=== PATIENT | male | born 1940 | race Caucasian/White ===

== ENCOUNTER 2022-09-23 20:28 | Inpatient (IN) | payer MEDICARE ==
[~2022-09-23] VITALS: Ht 177.8 cm; Wt 95.0 kg
[~2022-09-23 20:28] MED LIST: ALFU10TA10 PO; ATOR10TA87 PO; CARV-50 PO; CHOL100010 PO; DIGO250T2 PO; FINA5TAB11 PO; FLUO20CA39 PO; FURO40TA4 PO; GLIM4TAB7 PO; ICOS1CAP PO; LISI-222 PO; METF-438 PO; NORCO10T PO; WARF-113 PO
[2022-09-23] MEDS ORDERED: temazepam 15mg capsule PO PRN (21:00)
[2022-09-23] MEDS ORDERED: normal saline 1000ML IV soln IVB ONE (21:10)
[2022-09-23 22:05] LABS: HEMOGLOBIN 11.4 g/dl (14.0-17.9); MEAN PLATELET VOLUME 10.5 FL (7.4-10.4); MONOCYTES # (AUTO) 0.5 X10'3 (0-0.9); MONOCYTES % (AUTO) 4.5 % (2-12)
[2022-09-23 22:06] LABS: BASOPHILS % (AUTO) 0.1 % (0-1); EOSINOPHILS % (AUTO) 0.1 % (0-6); HEMATOCRIT 35.3 % (42.0-52.0); LYMPHOCYTES # (AUTO) 0.5 X10'3 (1.1-4.8); LYMPHOCYTES % (AUTO) 4.6 % (21-51); MEAN CORPUSCULAR HEMOGLOBIN 32.4 PG (27.0-31.0); MEAN CORPUSCULAR HGB CONC 32.4 g/dL (33.0-36.5); MEAN CORPUSCULAR VOLUME 99.8 FL (78-98); NEUTROPHILS # (AUTO) 10.8 X10'3 (1.8-7.7); NEUTROPHILS % (AUTO) 90.7 % (42-75); RED BLOOD COUNT 3.53 X10'6 (4.70-6.10); RED CELL DISTRIBUTION WIDTH 17.6 % (11.5-14.5); WHITE BLOOD COUNT 11.9 X10'3 (4.5-11.0)
[2022-09-23 22:32] LABS: ALBUMIN 3.1 G/DL (3.4-5.0); ALKALINE PHOSPHATASE 148 IU/L (46-116); ANION GAP 23 (8-16); BILIRUBIN,TOTAL 5.2 MG/DL (0.1-1.0); CALCIUM 6.2 MG/DL (8.5-10.1); CHLORIDE 94 MMOL/L (99-107); GLUCOSE 224 MG/DL (70-104); POTASSIUM 4.9 MMOL/L (3.5-5.1); SODIUM 133 MMOL/L (135-145); TOTAL CARBON DIOXIDE 16.5 MMOL/L (24-32); eGFR 9 ML/MIN
[2022-09-23] MEDS ORDERED: furosemide 10 MG/1 ML 10ml inj IV ONE (23:00)
[2022-09-23] MEDS ORDERED: normal saline 1000ml 1,000 ML IV SCH (23:05)
[2022-09-23] MEDS ORDERED: ondansetron/PF 4mg/2ml inj IV PRN (23:05)
[2022-09-23] MEDS ORDERED: acetaminophen 325mg tablet PO PRN ×2 (23:05)
[2022-09-23 23:07] LABS: ALBUMIN/GLOBULIN RATIO 1.1 (1.1-1.5); BLOOD UREA NITROGEN 143 MG/DL (7-18); BUN/CREATININE RATIO 23.1 (5.4-32.0); TOTAL PROTEIN 5.9 G/DL (6.4-8.2)
[2022-09-23 23:09] LABS: ALANINE AMINOTRANSFERASE 4625 U/L (12-78); ASPARTATE AMINO TRANSFERASE > 7000 U/L (10-37); PLATELET COUNT 46 X10'3 (140-440)
[2022-09-23] MEDS ORDERED: insulin Lispro (HumaLOG) vial - multi-dose SQ SCH (23:10)
[2022-09-23] MEDS ORDERED: glucagon, human recombinant 1mg kit SUBCUT PRN (23:10)
[2022-09-23] MEDS ORDERED: MESSAGE TO PHARMACY PO ONE (23:10)
[2022-09-23] MEDS ORDERED: DEXTROSE 15 GM of carb/4 tabs (each vial/BOTTLE has 4 tablets) PO PRN ×2 (23:10)
[2022-09-23] MEDS ORDERED: dextrose 50%-water 50ml dispensing syringe IV PRN ×2 (23:10)
--- NOTE | 2022-09-23 23:14 | NUR ---
PAGER ID: [phone] MESSAGE: Notification of Critical value; Preston Cantu in ED room 1 has a platelet count of 47,000. Krista CHAVEZ [id number]
[2022-09-23 23:42] LABS: ANISOCYTOSIS 1+; NUCLEATED RED BLOOD CELLS 4 /100WBC (0-0); PLATELET ESTIMATE DECREASED; TOTAL CELLS COUNTED 100
[2022-09-23 23:44] LABS: LARGE PLATELETS FEW
[2022-09-23 23:45] LABS: APTT 71 SECONDS (22-32)
[2022-09-23] MEDS ORDERED: CefTRIAXone 2gm/D5W 50ml BAG 50 ML IV SCH (23:50)
[2022-09-23] MEDS ORDERED: NORepinephrine inj. 32 MG in normal saline 250ml IV soln 218 ML IV SCH (23:50)
[2022-09-24 03:13] LABS: CLARITY,URINE CLOUDY (Clear); COLOR,URINE AMBER (Yellow); GLUCOSE, URINE NEGATIVE (Neg); KETONES,URINE 15 mg/dl (Neg); LEUKOCYTE ESTERASE ,URINE TRACE (Neg); NITRITES, URINE NEGATIVE (Neg); OCCULT BLOOD,URINE LARGE (Neg); PROTEIN,URINE 100 mg/dl (Neg)
[2022-09-24 03:38] LABS: BACTERIA,URINE 3+ /HPF (Neg); WBC,URINE 30-50 /HPF (0-4)
[2022-09-24 03:40] LABS: AMORPHOUS URATES 2+; MUCUS STRANDS NONE SEEN /LPF (Neg); SQUAMOUS EPITHELIAL CELL,UR FEW /LPF (FEW); TRANSITIONAL EPI CELLS,URINE FEW /HPF
[2022-09-24 03:41] LABS: UA COLLECTION TYPE NON-SPECIFIED
[2022-09-24] MEDS ORDERED: NORepinephrine 8mg/ 250ml NS 250 ML IV ONE (03:41)
[2022-09-24 04:16] LABS: ALBUMIN 2.7 G/DL (3.4-5.0); ALKALINE PHOSPHATASE 138 IU/L (46-116); ANION GAP 22 (8-16); BILIRUBIN,TOTAL 4.9 MG/DL (0.1-1.0); CHLORIDE 93 MMOL/L (99-107); CREATININE 6.22 MG/DL (0.60-1.10); GLUCOSE 222 MG/DL (70-104); POTASSIUM 5.2 MMOL/L (3.5-5.1); SODIUM 130 MMOL/L (135-145); TOTAL CARBON DIOXIDE 15.4 MMOL/L (24-32); eGFR 9 ML/MIN
[2022-09-24 04:35] LABS: TOTAL PROTEIN 5.3 G/DL (6.4-8.2)
[2022-09-24 04:36] LABS: BUN/CREATININE RATIO 25.7 (5.4-32.0)
[2022-09-24 04:39] LABS: BLOOD UREA NITROGEN 160 MG/DL (7-18)
[2022-09-24 04:42] LABS: ALANINE AMINOTRANSFERASE 4118 U/L (12-78); ASPARTATE AMINO TRANSFERASE 5586 U/L (10-37); CALCIUM 5.6 MG/DL (8.5-10.1)
[2022-09-24 04:46] LABS: BASOPHILS % (AUTO) 0.2 % (0-1); EOSINOPHILS % (AUTO) 0 % (0-6); HEMOGLOBIN 10.2 g/dl (14.0-17.9); MONOCYTES # (AUTO) 0.7 X10'3 (0-0.9)
[2022-09-24 04:48] LABS: HEMATOCRIT 32.7 % (42.0-52.0); LYMPHOCYTES # (AUTO) 0.5 X10'3 (1.1-4.8); LYMPHOCYTES % (AUTO) 4.3 % (21-51); MEAN CORPUSCULAR HEMOGLOBIN 31.4 PG (27.0-31.0); MEAN CORPUSCULAR HGB CONC 31.2 g/dL (33.0-36.5); MEAN CORPUSCULAR VOLUME 100.6 FL (78-98); MEAN PLATELET VOLUME 11.2 FL (7.4-10.4); MONOCYTES % (AUTO) 6.1 % (2-12); NEUTROPHILS # (AUTO) 10.5 X10'3 (1.8-7.7); NEUTROPHILS % (AUTO) 89.4 % (42-75); PLATELET COUNT 53 X10'3 (140-440); RED BLOOD COUNT 3.25 X10'6 (4.70-6.10); RED CELL DISTRIBUTION WIDTH 17.6 % (11.5-14.5); WHITE BLOOD COUNT 11.8 X10'3 (4.5-11.0)
[2022-09-24] MEDS ORDERED: human prothrombin complex-PCC 500 UNIT/20 ML VIAL IV ONE (05:15)
--- NOTE | 2022-09-24 05:23 | NUR ---
verbal order from car lot attendant to use 8 mg in 250 ml NS Norepinephrine in peripheral line until central line is available and MD ordered concentration of 32 mg in 250 ml NS can be used.
--- NOTE | 2022-09-24 05:33 | NUR ---
CRISTOFER KOEHLER spoke to family about placing a central line. The family declines to have a central line placed at this time.
[2022-09-24] MEDS ORDERED: phytonadione inj. 5 MG in normal saline 100ml IV soln 100 ML IV ONE (06:00)
[2022-09-24] MEDS: morphine 2 MG/ML inj. syringe IV PRN ×2 (06:05→07:15)
[2022-09-24] MEDS ORDERED: STERILE PO ONE ×2 (06:25)
[2022-09-24] MEDS ORDERED: WATER FOR INJECTION PO ONE ×2 (06:25)
[2022-09-24] MEDS ORDERED: PHYTONADIONE PO ONE ×2 (06:25)
[2022-09-24 06:35] VITALS: BP 89/54
--- NOTE | 2022-09-24 06:50 | NUR ---
pharmacy called to change Vit K to IV due to pt not being able to tolerate PO medication at this time.
[2022-09-24] MEDS ORDERED: LORazepam 2 mg/ml vial IV ONE (07:35)
--- NOTE | 2022-09-24 07:47 | NUR ---
Left AC IV bleeding and removed. Pressure bandage applied to left ac. pt cleaned. blow by oxygen applied for comfort. warm blankets applied. family aware of current plan of care and awaiting hospitalist. pt medicated per orders. will continue to monitor.
--- NOTE | 2022-09-24 07:52 | NUR ---
PAGER ID: [phone] MESSAGE: Mr Cantu Andrea in ER bed 16. family would like pt to be comfort care, can we change code status and start comfort measures. Connie
[2022-09-24] MEDS ORDERED: morphine 10mg/0.5ml (conc. morphine) oral syringe PO PRN (07:55)
[2022-09-24] MEDS ORDERED: LORazepam 2 mg/ml vial IV PRN (07:55)
[2022-09-24] MEDS ORDERED: heparin, porcine 5000 units/ml vial SQ SCH (08:00)
[2022-09-24] MEDS: morphine 10mg/ml inj. IV PRN ×4 (08:17→12:25)
--- NOTE | 2022-09-24 12:42 | NUR ---
Called into pts room. Pt not breathing. asystole on monitor. no central pulse noted. TOD 1242. Charge aware. [facility] called and pt released. awaiting [facility] for mortuary arrangements.
[2022-09-24] MEDS ORDERED: insulin glargine (Lantus) pen - multi-dose SQ SCH (21:00)
--- NOTE | 2022-10-04 13:22 | NUR ---
Case Management DC follow up: Patient .
== END 2022-09-24 16:28 | DRG 441 ==
LOC: ER 20:29 → ED HOLD 23:06 → EDBEDREQ 09-24 05:42
PROVIDERS: ADMIT Internal Medicine; ATTEND Family Medicine
DX: K72.00 Acute and subacute hepatic failure without coma (principal); I50.23 Acute on chronic systolic (congestive) heart failure; J18.9 Pneumonia, unspecified organism; N18.6 End stage renal disease; J96.21 Acute and chronic respiratory failure with hypoxia; K76.7 Hepatorenal syndrome; I13.2 Hypertensive heart and chronic kidney disease with heart failure and with stage 5 chronic kidney disease, or end stage renal disease; D62 Acute posthemorrhagic anemia; D68.9 Coagulation defect, unspecified; R57.9 Shock, unspecified; E87.20 Acidosis, unspecified; I42.9 Cardiomyopathy, unspecified; N17.9 Acute kidney failure, unspecified; Z51.5 Encounter for palliative care; Z66 Do not resuscitate; D50.9 Iron deficiency anemia, unspecified; R74.8 Abnormal levels of other serum enzymes; R62.7 Adult failure to thrive; D69.6 Thrombocytopenia, unspecified; E11.22 Type 2 diabetes mellitus with diabetic chronic kidney disease; I25.10 Atherosclerotic heart disease of native coronary artery without angina pectoris; I48.91 Unspecified atrial fibrillation; R29.6 Repeated falls; Z79.01 Long term (current) use of anticoagulants; Z95.810 Presence of automatic (implantable) cardiac defibrillator; Z79.899 Other long term (current) drug therapy; Z68.30 Body mass index [BMI] 30.0-30.9, adult
CPT/HCPCS: 36415; 71045; 80053; 81001; 83880; 84484; 85007; 85025; 85610; 85730; 87040; 87077; 87088; 87186; 93005; 96360; 99285; A6446; A6449; C1751; G0378; J0696; J1815; J1940; J2060; J2270; J2274; J3430; J3490; J7030